=== PATIENT | female | born 1970 | race Caucasian/White ===

== ENCOUNTER 2022-07-12 10:13 | Emergency (ER) | payer BC, SELFPAY ==
[2022-07-12] VITALS (21 sets, daily range): BP systolic 112–136; BP diastolic 60–77; PULSE 53–72; RESP 16; TEMP 36.7; O2SAT 94–99; BMI 21.1
--- NOTE | 2022-07-12 | CRLHL7_ITS ---
For Patients: As a result of the Cures Act, medical imaging exams and procedure reports are released immediately into your electronic medical record. You may view this report before your referring provider. If you have questions, please contact your health care provider. Indication: Right wrist reduction Technique: Two fluoroscopic images of the right wrist. Fluoroscopic time 1.4 seconds. IMPRESSION: Fluoroscopic guidance for closed reduction of the distal radial fracture. Dictated by Roge Vargas MD @ 07/12/2022 1:23:59 PM (Electronically Signed)
--- NOTE | 2022-07-12 10:26 | CRLHL7_ITS ---
For Patients: As a result of the Century Cures Act, medical imaging exams and procedure reports are released immediately into your electronic medical record. You may view this report before your referring provider. If you have questions, please contact your health care provider. Indication: Wrist fracture. Technique: Right wrist 3 views. Comparison: None. Findings/Impression: Bones: Acute mildly comminuted intra-articular fracture in the distal right radius with dorsal angulation. Ulnar styloid is also fractured. Joint spaces: Unremarkable. Soft tissues: Unremarkable. Dictated by Dave Thomson MD @ 07/12/2022 11:01:21 AM (Electronically Signed)
--- NOTE | 2022-07-12 11:03 | ED.UPPEXIN ---
HPI - Extremity Injury (Upper) General Chief Complaint: Extremity Pain/Injury, Upper Stated Complaint: R arm injury Time Seen by Provider: 07/12/22 10:51 History of Present Illness HPI narrative: This 52-year-old female comes in with an injury to her right wrist. She was wearing some slippers at home in the kitchen that would became wet and she slipped on the floor. She fell onto her outstretched right hand and has a deformity at the right wrist. She did not hit her head or have loss of consciousness. She does not report any other injury. She states that she last ate about 3 hours prior to arrival. Related Data Home Medications Medication Instructions Recorded Confirmed multivitamin 1 tab PO DAILY 07/12/22 07/12/22 Previous Rx's Medication Instructions Recorded hydrocodone 5 mg-acetaminophen 325 1 tab PO Q4-6H PRN pain #15 tabs 07/12/22 mg tablet ondansetron HCl 4 mg tablet 4 mg PO Q6H #10 tabs 07/12/22 Allergies Allergy/AdvReac Type Severity Reaction Status Date / Time No Known Drug Allergies Allergy Verified 07/12/22 10:18 Review of Systems Status of ROS: Reports: 10 or more systems reviewed and unremarkable except as noted in History and below Narrative: Constitutional: No fevers, no weight gain or loss. Eyes: No discharge. No vision changes. HENT: No congestion, no sore throat, no ear pain. Cardiovascular: No chest pain, no palpitations. Respiratory: No shortness of breath, no wheezes, no cough. Gastrointestinal: No abdominal pain, no vomiting, no diarrhea. Genitourinary: No dysuria, no hematuria. Musculoskeletal: Right wrist deformity. Skin: No rashes, no pruritis. Neurological: No dizziness, weakness, sensory change, speech change. Endo/Heme/Allergies: No bruising or bleeding. No polydipsia. Pysch: no suicidality, no anxiety, no insomnia. All other systems reviewed and are negative. PFSH PFSH Social History Smoking Status: Never smoker Do you use any of these nicotine containing products: None Second hand tobacco smoke exposure: No How often do you have a drink containing alcohol: never AUDIT-C Alcohol total score: 0 Non-prescribed substance use: denies use service: No Exam Narrative: Exam Narrative: Constitutional: Well-developed, well-nourished, no acute distress. HEENT: Normocephalic, atraumatic. Neck: Normal range of motion. Nontender. Supple. Heart: Regular. No murmurs. Normal rate. Intact distal pulses. Lungs: Clear to auscultation. No chest discomfort. No wheezes, rhonchi, or rales. Abdomen: Normal bowel sounds. Nontender. No rebound tenderness. Genitalia: Deferred. Back: No midline tenderness. Normal range of motion. Extremities: Right wrist has a deformity with dorsal angulation of the distal component. Skin: Intact. No rash. Warm. No erythema or pallor. Neurologic: No altered sensation. No weakness. Alert and oriented. Psychiatric: No suicidality. No anxiety or depression. No insomnia. Nursing notes and vitals signs are reviewed. Const: Vital Signs, click to edit/add: Vital Signs - 24 hr 07/12/22 10:19 07/12/22 10:25 07/12/22 10:26 Temperature 98.1 F Pulse Rate 60 63 Pulse Rate [Pulse Oximeter] 61 Respiratory Rate 16 Blood Pressure 125/66 Blood Pressure [Le ft Upper Arm] 125/66 Pulse Oximetry 97 96 98 Oxygen Delivery Me thod Room Air 07/12/22 10:30 07/12/22 10:32 07/12/22 10:45 Temperature Pulse Rate 62 64 63 Pulse Rate [Pulse Oximeter] Respiratory Rate Blood Pressure 124/60 Blood Pressure [Le ft Upper Arm] Pulse Oximetry 96 96 97 Oxygen Delivery Me thod 07/12/22 11:00 07/12/22 11:02 07/12/22 11:15 Temperature Pulse Rate 64 63 58 L Pulse Rate [Pulse Oximeter] Respiratory Rate Blood Pressure 123/75 Blood Pressure [Le ft Upper Arm] Pulse Oximetry 97 97 98 Oxygen Delivery Me thod Course Vital Signs Vital signs: Initial Vital Signs Temperature 98.1 F 07/12/22 10:19 Temperature Source Temporal Artery Scan 07/12/22 10:19 Pulse Rate 61 07/12/22 10:19 Pulse Rhythm 07/12/22 10:19 Pulse Strength 3+ Normal 07/12/22 10:19 Respiratory Rate 16 07/12/22 10:19 Blood Pressure 125/66 07/12/22 10:19 Blood Pressure Mean 85 07/12/22 10:19 Blood Pressure Position Supine 07/12/22 10:19 Pulse Oximetry 97 02/23/23 10:19 Oxygen Delivery Method 07/12/22 10:19 Vital Signs Temperature 98.1 F 07/12/22 10:19 Pulse Rate 61 07/12/22 10:19 Respiratory Rate 16 07/12/22 10:19 Blood Pressure 125/66 07/12/22 10:19 Pulse Oximetry 97 07/12/22 10:19 Oxygen Delivery Method 07/12/22 10:19 Temperature 98.1 F 07/12/22 10:19 Pulse Rate 58 L 07/12/22 11:15 Respiratory Rate 16 07/12/22 10:19 Blood Pressure 123/75 07/12/22 11:02 Pulse Oximetry 98 07/12/22 11:15 Oxygen Delivery Method 07/12/22 10:19 MDM - Extremity Injury (Upper) MDM Narrative Medical decision making narrative: This patient comes in with an injury to her right wrist. X-ray imaging shows a fracture of the distal radius that is comminuted and intra-articular. There is a dorsal angulation of the distal component. There is also an ulnar styloid fracture. This patient did take food about 3 hours prior to arrival here. Orthopedic physician's printer's assistant, Javier, was consulted and assisted in reducing this fracture. After acquiring informed consent patient received an IV dose of propofol. She received a total of 200 mg to provide sufficient sedation. The wrist was manipulated and evaluated with C-arm images. She received a sugar-tong splint and a sling. Arrangements are made for follow-up appointment next week for further treatment of this fracture. The patient is okay to be discharged home and received prescription for [place] and Zofran. Imaging Data XR R Wrist: Radiologist's impression: Bones: Acute mildly comminuted intra-articular fracture in the distal right radius with dorsal angulation. Ulnar styloid is also fractured. Joint spaces: Unremarkable. Soft tissues: Unremarkable. Discharge Plan Discharge Clinical Impression: Fracture of wrist Patient Disposition: Home, Self-Care Condition: Improved Additional Instructions: Wear splint and sling and follow-up with orthopedic appointment as scheduled. Use medication as needed and directed. Return if worsening. Prescriptions: New hydrocodone-acetaminophen 5-325 mg tablet 1 tab PO Q4-6H PRN (Reason: pain) Qty: 15 0RF ondansetron HCl 4 mg tablet 4 mg PO Q6H Qty: 10 0RF No Action multivitamin Tablet 1 tab PO DAILY Follow Up/Referrals: Provider,Not a Local [Primary Care Provider] - Stand Alone Forms: MyHealth Info Instructions
[2022-07-12] MEDS: 0.9 % SODIUM CHLORIDE 500 ML 500 ML IV (11:30)
[2022-07-12] MEDS: PROPOFOL 10 MG/ML INJ 100 MG IVP (11:47)
[2022-07-12] MEDS: PROPOFOL 10 MG/ML INJ 100 MG IV (11:52)
--- NOTE | 2022-07-12 12:23 | ED.NURSE ---
Right wrist reduction completed at bedside. Airway cart at bedside. JOSE BUTTS, 2RNs at bedside. Vital signs remained within normal limits. 3L NC oxygen and manual airway support completed throughout the procedure. Procedure start time was 1147. Procedure complete time was 1157. Monitored patient for 30min after. Family at bedside. Has a services delivery driver home. Ortho appointments follow up made for patient.
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
== END 2022-07-12 12:46 | disposition home or self-care (01) ==
PROVIDERS: Emergency Provider Emergency Medicine Emergency Medical Services
DX: S52.571A Other intraarticular fracture of lower end of right radius, initial encounter for closed fracture (principal); S52.611A Displaced fracture of right ulna styloid process, initial encounter for closed fracture
CPT/HCPCS: 29125; 73100; 73110; 76000; 99284; J2704; J7120

== ENCOUNTER 2022-07-19 06:30 | Day surgery (SDC) | payer BC, SELFPAY ==
[2022-07-19] VITALS (9 sets, daily range): BP systolic 92–145; BP diastolic 58–83; PULSE 49–63; RESP 16; TEMP 36.6–36.8; O2SAT 94–99; BMI 22.2
--- NOTE | 2022-07-19 07:36 | SUR.PREOP ---
pt declined ucg. states she has had an ablation, no period, sign. other is 74. no concerns about
--- NOTE | 2022-07-19 07:37 | SUR.PREOP ---
covid home test negative
[2022-07-19] MEDS: ACETAMINOPHEN 500 MG TABLET 1000 MG PO (07:45)
[2022-07-19] MEDS: OXYCODONE (CR) 10 MG TAB.ER.12H PO (07:45)
[2022-07-19] MEDS: LACTATED RINGERS 1000 ML 1,000 ML 100 ML IV (07:45)
[2022-07-19] MEDS: CELECOXIB 200 MG CAPSULE PO (07:45)
[2022-07-19] MEDS: MIDAZOLAM HCL 1 MG/ML inj IVP (08:22)
[2022-07-19] MEDS: fentaNYL 100 MCG/2 ML inj IVP (08:22)
--- NOTE | 2022-07-19 08:27 | SUR.PREOP ---
TIME?OUT:?right wrist, 0820 PT/RN/MDA?VERIFICATION?OF?SURGICAL?SITE,?PROCEDURE,?AND?CONSENT OBTAINED?PRIOR?TO?INVASIVE?PROCEDURE.
--- NOTE | 2022-07-19 08:30 | CRLHL7_ITS ---
For Patients: As a result of the Cures Act, medical imaging exams and procedure reports are released immediately into your electronic medical record. You may view this report before your referring provider. If you have questions, please contact your health care provider. INDICATION: Follow up open reduction and internal fixation of the right wrist. TECHNIQUE: Fluoroscopically guided open reduction and internal fixation of the right wrist. Three spot intraoperative images were obtained. COMPARISON : Pre-surgical images July 12, 2022. FINDINGS: 34.3 seconds fluoroscopy time utilized intraoperatively. A plate and screw fixation device bridges the distal right radius. Adequate alignment. The ulnar styloid fracture is suboptimally visualized. IMPRESSION : Adequate alignment status post open reduction internal fixation across the distal right radial fracture. Dictated by Lawrence Whitman MD @ 07/19/2022 10:23:57 AM (Electronically Signed)
[2022-07-19] MEDS: CEFAZOLIN 2 GM INJ IVP (09:07)
--- NOTE | 2022-07-19 09:37 | W.ANESCHARGE ---
Anesthesia Charges Start Date/Time Anesthesia Start Date: 07/19/22 Anesthesia Start Time: 08:57 Stop Date/Time Anesthesia Stop Date: 07/19/22 Anesthesia Stop Time: 10:26
--- NOTE | 2022-07-19 09:38 | W.PM.NB ---
Nerve Block Nerve Block Time Seen by Provider: 08:24 Date Seen: 07/19/22 Type of block requested by surgeon for post-operative analgesia: axillary Side: right Time out performed: Yes Verification of patient name: Yes Verification of date of : Yes Site marking: site marked Name of person performing procedure: Luis Fernando Continuous monitoring Was continuous monitoring of O2 sat, B/P, cardiac specialist, recorded every 15 minutes?: Yes Procedure Checklist: sterile prep, needles and gloves Ultrasound guided. Images saved: Yes Medications given in 5ml increments after negative aspiration: Ropivicaine %: 0.5 mL: 30 Needle gauge: 22 Patient tolerated procedure well: Yes Additional comments: Needle noted adjacent to nerve Block Charges Block Charge (with Pro Fee): Brachial Plexus Use of Ultrasound Machine for Block: Yes- US Guidance/pain block
--- NOTE | 2022-07-19 10:01 | PM.ORPRC ---
Procedure Note Date of procedure: 07/19/22 Procedure: PREOPERATIVE DIAGNOSIS: Angulated 3+ part right upper extremity distal radius fracture POSTOPERATIVE DIAGNOSIS: Angulated 3+ part right upper extremity distal radius fracture NAME OF OPERATION: Open reduction internal fixation SURGEON: Nelson Jo MD HEALTH CARE ANALYST: Eugenie Holguin PA-C ANESTHESIA: Supraclavicular block plus monitored anesthesia care ESTIMATED BLOOD LOSS: 0 mL COMPLICATIONS: None SPECIMENS: None DRAINS: None PREOPERATIVE ANTIBIOTICS: Ancef 1 grams INDICATIONS: The patient is a 52-year-old who fell landing on their upper extremity sustaining the above injury. Given the amount of angulation, reduction and plate fixation were recommended. The risks, benefits and expected outcomes were discussed in detail. These included but were not limited to: Infection, bleeding, injury to blood vessel or nerve, venous thromboembolism. All questions were answered to their satisfaction. Use of an assistant press operator was necessary throughout the case for patient positioning and safety, maintenance of the reduction, surgical site dressing and splint application. PROCEDURE: A supraclavicular block was placed by Anesthesia. The patient was placed supine on the operating room table. IV sedation was administered. The reduction was obtained with longitudinal traction and volar force on the distal fragment, held by the assistant press operator. The image intensifier was used to confirm an excellent reduction. The extremity was prepped and draped in the usual sterile fashion. The limb was exsanguinated with the Fidel bandage. The pneumatic tourniquet was inflated to 250 mm of mercury. A longitudinal incision was made over the flexor carpi radialis. Subcutaneous dissection was taken sharply through the FCR sheath. The FCR was retracted radially. Sharp dissection was carried through the floor of the FCR sheath. The flexor pollicis longus was retracted ulnarly. Sharp dissection was carried through the radial border of the pronator quadratus which was elevated ulnarly, exposing the fracture site. The assistant press operator held retractors to expose the fracture. The volar cortex of the fracture is anatomically aligned. We placed a Synthes standard 3 hole volar locking plate over the volar cortex. It was provisionally held with 2 olive wires, while the assistant press operator held the reduction. Its placement was confirmed with the image intensifier. We placed a cortical screw in the slot. We placed a locking screw in the shaft. We then filled the distal screw holes with smooth locking pegs using the image intensifier to confirm their extra-articular placement. Finally, a 2nd locking screw was placed in the shaft fragment. This construct was imaged in multiple views and was felt to be well placed with an anatomic reduction and well placed implants. The wound was irrigated normal saline. Subcutaneous tissues were reapproximated a 2-0 Vicryl, skin with a running 3-0 Monocryl in a subcuticular fashion. Glue was used to seal the skin. A dry dressing and short-arm dorsal volar splint was applied. These steps were all completed by the assistant press operator. The tourniquet was released, sponge and needle counts were correct x2. The patient tolerated the procedure well, there were no apparent complications. They were taken to the postanesthesia care unit in satisfactory condition. PLAN: The patient will be discharged home. They will work on elevation of the hand and active range of motion of the fingers. They will follow up next week in the office for a wound check with a PA, oblique, lateral and fossa lateral view of the wrist out of the splint prior to being seen in preparation for early active motion with Orthoplast splint protection.
--- NOTE | 2022-07-19 10:34 | W.ANESCHARGE ---
Anesthesia Charges Start Date/Time Anesthesia Start Date: 07/19/22 Anesthesia Start Time: 08:57 Stop Date/Time Anesthesia Stop Date: 07/19/22 Anesthesia Stop Time: 10:26
== END 2022-07-19 11:41 | disposition home or self-care (01) ==
PROVIDERS: PCP Orthopaedic Surgery; Visit Provider Orthopaedic Surgery
PROC: (CPT 25575; principal; 2022-07-19 08:30)
DX: S52.551A Other extraarticular fracture of lower end of right radius, initial encounter for closed fracture (principal)
CPT/HCPCS: 25607; 01830; 64415; 73110; 76000; 76942; A4580; A9270; C1713; J0690; J2250; J2405; J2704; J3010; J7120